=== PATIENT | male | born 1945 | race Caucasian/White ===

== ENCOUNTER 2021-07-22 12:10 | Outpatient (REF) | payer OTHER, SELFPAY ==
--- NOTE | ~2021-07-22 | XR_ITS ---
EXAMINATION: XR BILATERAL HIPS WITH AP PELVIS CLINICAL INFORMATION: Right hip pain. COMPARISON: None TECHNIQUE: Frontal and frog-leg lateral views of both hips were obtained. FINDINGS: Left hip: The bony alignments are intact. The cortices are intact. Mild diffuse osteopenia is noted. Enthesopathy is noted at the greater trochanter. There is oval shaped radiopaque density seen projecting within the proximal sacrum on the frontal projection, appears to be extraosseous on the oblique view, likely represent adjacent soft tissue calcification. No evidence of any significant osteoarthrosis of the fracture and/or dislocation. Incidental note is made of presence of calcific atherosclerotic disease of the femoral popliteal arteries. Right hip: Mild diffuse osteopenia. Near absent joint space, subchondral sclerosis and mild osteophyte formations are noted, consistent with severe osteoarthrosis. Superimposed wedge-shaped radiolucency is noted at the femoral head, likely represent subchondral large degenerative cyst versus avascular necrosis or combination thereof. Significant atherosclerotic disease is present involving the femoral popliteal arteries. XR/XR hips JONAH min 3V IMPRESSION: 1. Mild diffuse osteopenia. 2. The left hip shows no evidence of any significant osteoarthrosis and no fracture or dislocation. 3. The right hip is quite abnormal showing evidence of severe osteoarthrosis and wedge-shaped radiolucency at the femoral head likely represent subchondral degenerative cyst versus avascular necrosis or combination thereof. 4. Bilateral significant atherosclerotic disease of the femoral popliteal arteries.
== END 2021-07-22 12:11 | disposition home or self-care (01) ==
LOC: HO.HMGCX 12:10
PROVIDERS: PCP Internal Medicine; Visit Provider Internal Medicine
DX: M25.551 Pain in right hip (principal)
CPT/HCPCS: 73522

== ENCOUNTER 2023-03-28 11:17 | Outpatient (AMB) | payer MEDICARE, SELFPAY ==
--- NOTE | 2023-03-28 11:22 | MHC.PC.OV ---
Vital Signs 03/28/23 11:25 Height 5 ft 8 in Weight 190 lb BMI 28.9 BP 136/74 Blood Pressure Location Rt brachial Position Sitting Pulse 75 Pulse Source Pulse Oximeter Pulse Oximetry (%) 100 Oxygen Delivery Method Room Air Intake Visit Reasons: Infected Wound On Leg / Redness Intake Note: Pt is here today for a sick visit. Pt c/o L lower leg swelling and redness. Allergies penicillamine Allergy (Unknown, Verified 03/28/23 11:28) n/a Medication List - Last Reconciled 03/28/23 by Court Vidal MD amlodipine 2.5 mg PO DAILY atenolol 50 mg PO DAILY blood sugar diagnostic ([employer] Ultra Test strips) check glucose once a day flu vacc qs 2019- (6 mos up) mL IM lancets ([employer] UltraSoft Lancets) check glucose once a day quetiapine (Seroquel) 50 mg PO BEDTIME PRN sertraline 50 mg PO DAILY Tobacco use date assessed: 01/25/23 Dental Screening Dental Screen Date: 03/28/23 Did you have a dental visit in the last 12 months?: Yes Did you have a dental problem in the last 6 months where you did not have access to dental care?: No Was dental information given to patient?: Patient has dentist HPI Infected Wound On Leg / Redness HPI Details Pt presents for f/u of LLE chronic edema and venous insufficiency. Patient reports occasional flareup in a chronic swelling but denies recent ulcers. Patient declined referral to a vascular surgeon. He has not been wearing compression knee-high. HTN is stable on meds. Patient has not been taking antidepressant for chronic anxiety. [facility] Medical History COVID-19 Hip pain, right HTN (hypertension) Normal colonoscopy Weight loss Surgical History Hx of appendectomy Family History Mother No problems noted. Father No problems noted. 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 Azeem Johnson, Naomy Denny, Jf Chung and colleagues, with an educational bert from [employer]. Review of Systems Const All systems reviewed & are unremarkable except as noted in HPI and below Reports no additional complaints Eyes Reports no additional complaints ENT Reports no additional complaints Card Reports no additional complaints Resp Reports no additional complaints GI Reports no additional complaints Reports no additional complaints Physical exam (Primary Care) Vital Signs: Last Vital Signs Pulse 75 03/28/23 11:25 BP 136/74 03/28/23 11:25 Pulse Ox 100 03/28/23 11:25 Oxygen Delivery Method Room Air 03/28/23 11:25 BMI result Body Mass Index 28.9 Tobacco/Smoking Status: Tobacco use Status Tobacco use date assessed 01/25/23 03/28/23 11:31 Patient Tobacco Use Status Never used Tobacco 03/28/23 11:31 e-Cigarette/Vaping Use Never Used 03/28/23 11:31 Thrive Assessment: Date of Thrive Assessment Date Thrive assessed 11/18/21 03/28/23 11:31 Const General: no acute distress HENMT Throat: Yes posterior oropharynx normal Neck Neck: Yes supple Resp Effort & Inspection: normal respiratory effort Auscultation: clear to auscultation bilaterally Cardio Rhythm: regular rhythm Heart sounds: S1 normal heart sound present and S2 normal heart sound present Extrem Other: Left lower extremity 2+ nonpitting edema chronic venous stasis changes, no ulcers Assessment and Plan Assessment & Plan (1) Venous insufficiency of left leg: Code(s): I87.2 - Venous insufficiency (chronic) (peripheral) Plan: Patient was advised to wear compression knee highs and elevate lower extremity (2) HTN (hypertension): Code(s): I10 - Essential (primary) hypertension Plan: Continue current medications Medications: New compr.stocking,knee,long,large As directed 12 ea 0RF Refilled doxycycline hyclate 100 mg PO BID 20 tabs 0RF Discontinued sertraline Discontinued Reason: Doctor's Order 50 mg PO DAILY 30 tabs 2RF quetiapine (Seroquel) Discontinued Reason: Doctor's Order 50 mg PO BEDTIME PRN 30 tabs 0RF agitation Coding Level of Care Code Est Pt Level 3 (55793) Diagnoses Venous insufficiency of left leg I87.2 HTN (hypertension) I10
[2023-03-28 11:25] VITALS: BP 136/74; PULSE 75; O2SAT 100; BMI 28.9
== END 2023-03-28 12:24 | disposition home or self-care (01) ==
PROVIDERS: PCP Internal Medicine; Visit Provider Internal Medicine
DX: I87.2 Venous insufficiency (chronic) (peripheral) (principal); I10 Essential (primary) hypertension
CPT/HCPCS: 99213

== ENCOUNTER 2023-05-03 09:27 | Outpatient (AMB) | payer MEDICARE, SELFPAY ==
--- NOTE | 2023-05-03 09:37 | A.OFFPC_ITS ---
Vital Signs 05/03/23 09:39 Height 5 ft 8 in Weight 188 lb BMI 28.6 BP 120/78 Blood Pressure Location Lt brachial Position Sitting Pulse 74 Pulse Source Pulse Oximeter Pulse Oximetry (%) 99 Oxygen Delivery Method Room Air Intake Visit Reasons: 05/16/23 Cataract Surgery Left Eye Intake Note: Pt is here today for a pre op visit. Pt is having cataract surgery on 05/16/23. Allergies penicillamine Allergy (Unknown, Verified 05/03/23 09:41) n/a Tobacco use date assessed: 05/03/23 HPI 05/16/23 Cataract Surgery Left Eye HPI Details Pt presents for preop for cataract surgery. HTN is stable on meds. PFSH Medical History COVID-19 Hip pain, right HTN (hypertension) Normal colonoscopy Weight loss Surgical History Hx of appendectomy Family History Mother No problems noted. Father No problems noted. 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 Azeem Johnson, Naomy Denny, Jf Chung and colleagues, with an educational bert from [employer]. Review of Systems Const All systems reviewed & are unremarkable except as noted in HPI and below Reports no additional complaints Eyes Reports no additional complaints ENT Reports no additional complaints Card Reports no additional complaints Resp Reports no additional complaints GI Reports no additional complaints Reports no additional complaints Physical exam (Primary Care) Vital Signs: Last Vital Signs Pulse 74 05/03/23 09:39 BP 120/78 05/03/23 09:39 Pulse Ox 99 05/03/23 09:39 Oxygen Delivery Method Room Air 05/03/23 09:39 BMI result Body Mass Index 28.6 Tobacco/Smoking Status: Tobacco use Status Tobacco use date assessed 05/03/23 05/03/23 09:46 Patient Tobacco Use Status Never used Tobacco 05/03/23 09:37 e-Cigarette/Vaping Use Never Used 05/03/23 09:37 Thrive Assessment: Date of Thrive Assessment Date Thrive assessed 11/18/21 05/03/23 09:37 Const General: no acute distress HENMT Head: Yes normal to inspection Face and sinus: Yes normal facial exam Eyes General: appearance normal, both eyes and all related structures Neck Neck: Yes supple Resp Effort & Inspection: normal respiratory effort Auscultation: clear to auscultation bilaterally Cardio Rhythm: regular rhythm Heart sounds: S1 normal heart sound present and S2 normal heart sound present GI Inspection: Yes normal to inspection Palpation (GI): Soft to palpation Percussion: Yes normal to percussion Auscultation: normal bowel sounds Immunizations pneumoc 20-mary conj-dip cr(PF) Performing Provider: Court Vidal MD Administered by: GIAN Vitale on 05/03/23 10:25 Dose Route Admin Location Lot Number Expiration Date NDC [employer] 0.5 mL IM Left Deltoid [id number] 07/17/24 4918-8306-04 [employer] VIS Given Date VIS Provided VIS Publication Date 05/03/23 Single Vaccine 21 Eligibility Eligibility Date Funding Source Not [facility] Eligible 05/03/23 Private Assessment and Plan Assessment & Plan (1) HTN (hypertension): Code(s): I10 - Essential (primary) hypertension Plan: Continue current medications (2) Hyperlipidemia: Code(s): E78.5 - Hyperlipidemia, unspecified Plan: Continue low-cholesterol diet return for fasting blood work at [facility] (3) Cataract: Code(s): H26.9 - Unspecified cataract Plan: Patient is medically cleared for cataract surgery Orders: Orders Comprehensive [place]. Panel Fast Today E78.5 - Hyperlipidemia, unspecified, I10 - Essential (primary) hypertension Lipid Panel Today E78.5 - Hyperlipidemia, unspecified, I10 - Essential (primary) hypertension TSH reflex Free T4 Today E78.5 - Hyperlipidemia, unspecified, I10 - Essential (primary) hypertension Complete Blood Count Auto Diff Today E78.5 - Hyperlipidemia, unspecified, I10 - Essential (primary) hypertension Pneumococcal 20 Immunization Today Z23 - Encounter for immunization Coding Level of Care Code Est Pt Level 3 (22693) Diagnoses HTN (hypertension) I10 Hyperlipidemia E78.5 Cataract H26.9
[2023-05-03 09:39] VITALS: BP 120/78; PULSE 74; O2SAT 99; BMI 28.6
== END 2023-05-03 10:39 | disposition home or self-care (01) ==
PROVIDERS: PCP Internal Medicine; Visit Provider Internal Medicine
DX: I10 Essential (primary) hypertension (principal); E78.5 Hyperlipidemia, unspecified; H26.9 Unspecified cataract; Z23 Encounter for immunization
CPT/HCPCS: 90471; 90677; 99213

== ENCOUNTER 2023-06-05 13:00 | Outpatient (AMB) | payer MEDICARE, SELFPAY ==
--- NOTE | 2023-06-05 13:04 | MHC.PC.OV ---
Vital Signs 06/05/23 13:05 Height 5 ft 8 in Weight 180 lb BMI 27.4 BP 122/64 Blood Pressure Location Rt brachial Position Sitting Pulse 70 Pulse Source Pulse Oximeter Pulse Oximetry (%) 98 Oxygen Delivery Method Room Air Intake Visit Reasons: [facility], Sepsis in left leg Intake Note: Pt is here today for a Hospital follow up. Pt needs a refill on Haroperidol. Allergies penicillamine Allergy (Unknown, Verified 06/05/23 13:08) n/a Medication List - Last Reconciled 06/05/23 by Court Vidal MD amlodipine 2.5 mg PO DAILY atenolol 50 mg PO DAILY blood sugar diagnostic ([employer] Ultra Test strips) check glucose once a day compr.stocking,knee,long,large As directed doxycycline hyclate 100 mg PO BID flu vacc qs 2019-20 (6 mos up) mL IM haloperidol lactate 1 mg PO QID PRN lancets (OneTouch UltraSoft Lancets) check glucose once a day Tobacco use date assessed: 05/03/23 HPI [facility], Sepsis in left leg HPI Details Pt presents for f/u of hospitalization for cellulitis/pneumonia, sepsis change in MS. Pt is feeling better. Pt has been taking Haloperidol with good effect for psychosis/agitation. Patient's license was suspended because of report from psychiatrist at [facility] that the patient was not safe to drive a car due to his change in mental status and confusion. 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 Pt needs preop clearance for cataract surgery on June 26. [facility] Medical History COVID-19 Hip pain, right HTN (hypertension) Normal colonoscopy Weight loss Surgical History Hx of appendectomy Family History Mother No problems noted. Father No problems noted. 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 Azeem Johnson, Naomy Denny, Jf Chung and colleagues, with an educational bert from [employer]. Review of Systems Const All systems reviewed & are unremarkable except as noted in HPI and below Reports no additional complaints Eyes Reports no additional complaints ENT Reports no additional complaints Card Reports no additional complaints Resp Reports no additional complaints GI Reports no additional complaints Reports no additional complaints Physical exam (Primary Care) Vital Signs: Last Vital Signs Pulse 70 06/05/23 13:05 BP 122/64 06/05/23 13:05 Pulse Ox 98 06/05/23 13:05 Oxygen Delivery Method Room Air 06/05/23 13:05 BMI result Body Mass Index 27.4 Tobacco/Smoking Status: Tobacco use Status Tobacco use date assessed 05/03/23 06/05/23 13:12 Patient Tobacco Use Status Never used Tobacco 06/05/23 13:12 e-Cigarette/Vaping Use Never Used 06/05/23 13:12 Thrive Assessment: Date of Thrive Assessment Date Thrive assessed 11/18/21 06/05/23 13:12 Const General: no acute distress HENMT Mouth: Normal oral and palatal mucosa present Eyes General: appearance normal, both eyes and all related structures Neck Neck: Yes supple Resp Effort & Inspection: normal respiratory effort Auscultation: clear to auscultation bilaterally Cardio Rhythm: regular rhythm Heart sounds: S1 normal heart sound present and S2 normal heart sound present GI Inspection: Yes normal to inspection Palpation (GI): Soft to palpation Percussion: Yes normal to percussion Auscultation: normal bowel sounds Assessment and Plan Assessment & Plan (1) Psychosis: Code(s): F29 - Unspecified psychosis not due to a substance or known physiological condition Plan: Continue haloperidol and referred to outpatient psychiatrist to clear patient for 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 (2) Cataract: Code(s): H26.9 - Unspecified cataract Plan: Patient is medically cleared for cataract surgery (3) HTN (hypertension): Code(s): I10 - Essential (primary) hypertension Plan: Continue current medications Orders: Referrals Psychiatry Referral F29 - Unspecified psychosis not due to a substance or known physiological condition, F41.9 - Anxiety disorder, unspecified Medications: New haloperidol lactate 1 mg (0.5 mL) PO QID PRN 120 mL 1RF agitation Discontinued doxycycline hyclate Discontinued Reason: Doctor's Order 100 mg PO BID 20 tabs 0RF Coding Level of Care Code Est Pt Level 4 (60188) Diagnoses Psychosis F29 Cataract H26.9 HTN (hypertension) I10
[2023-06-05 13:05] VITALS: BP 122/64; PULSE 70; O2SAT 98; BMI 27.4
== END 2023-06-05 14:55 | disposition home or self-care (01) ==
PROVIDERS: PCP Internal Medicine; Visit Provider Internal Medicine
DX: F29 Unspecified psychosis not due to a substance or known physiological condition (principal); H26.9 Unspecified cataract; I10 Essential (primary) hypertension
CPT/HCPCS: 99214

== ENCOUNTER → 2023-10-09 23:59 | Outpatient (BNV) | payer MEDICARE, SELFPAY | PROVIDERS: PCP Internal Medicine; Visit Provider Internal Medicine | DX: I10 Essential (primary) hypertension (principal); I73.9 Peripheral vascular disease, unspecified; R53.83 Other fatigue | CPT/HCPCS: G0180 ==

== ENCOUNTER 2023-11-12 11:51 | Outpatient (AMB) | payer MEDICARE, SELFPAY ==
--- NOTE | 2023-11-12 11:52 | MHC.PC.OV ---
Intake Visit Reasons: Follow up [phone] Intake Note: Telehealth visit. Needs Hospital bed. Allergies penicillamine Allergy (Unknown, Verified 11/12/23 11:53) n/a Medication List - Last Reconciled 11/12/23 by Court Vidal MD atenolol 50 mg PO DAILY blood sugar diagnostic (OneTouch Ultra Test strips) check glucose once a day compr.stocking,knee,long,large As directed flu vacc qs 2019-20 (6 mos up) mL IM haloperidol lactate 1 mg (0.5 mL) PO QID PRN hospital bed As directed lancets (OneTouch UltraSoft Lancets) check glucose once a day Tobacco use date assessed: 11/12/23 Fall risk assessment: 2 + Falls in past year Last assessed Fall Risk: 11/12/23 Dental Screening Dental Screen Date: 11/12/23 Did you have a dental visit in the last 12 months?: No Did you have a dental problem in the last 6 months where you did not have access to dental care?: No Was dental information given to patient?: Patient declined HPI Follow up [phone] HPI Details This is a Telehealth vist. . Spoke with the patient's and son-in-law. Pt has been getting more forgetful, weaker, refusing to walk and having difficulty getting out of bed. He is at risk of falling out the bed. Patient has been evaluated by psychiatric team from [facility] but has been refusing to take psychiatric medications. Hypertension has been controlled on Atenolol. [facility] Medical History COVID-19 Hip pain, right HTN (hypertension) Normal colonoscopy Weight loss Surgical History Hx of appendectomy Family History Mother No problems noted. Father No problems noted. 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 1. Little interest or pleasure in doing things: not at all 2. Feeling down, depressed, or hopeless: not at all 3. Trouble falling or staying asleep, or sleeping too much: not at all 4. Feeling tired or having little energy: not at all 5. Poor appetite or overeating: more than half the days 6. Feeling bad about yourself - or that you are a failure or have let yourself or your family down: not at all 7. Trouble concentrating on things, such as reading the newspaper or watching television: not at all 8. Moving or speaking so slowly that other people could have noticed. Or the opposite - being so fidgety or restless that you have been moving around a lot more than usual: not at all 9. Thoughts that you would be better off or of hurting yourself in some way: not at all Total score: 2 Depression Screening Interpretation: Negative Depression Screening Done: Yes Source: Developed by Drs. Azeem Johnson, Naomy Denny, Jf Chung and colleagues, with an educational bert from [employer]. Thrive Questionnaire Date Thrive assessed: 11/12/23 I am a: Patient What is your living situation today?: I have a steady place to live Within the past 12 months, did the food you bought not last and you didn't have the money to get more?: Never true Within the past 12 months, did you worry whether your food would run out before you got money to buy more?: Never true Do you have trouble paying for medicines?: No Do you have trouble getting transportation to medical appointments?: No Do you have trouble paying your heating and electricity bill?: No Do you have trouble taking care of your child, family member or friend?: No Do you have trouble with day-to-day activities such as bathing, preparing meals, shopping, managing finances, etc.?: No Are you currently unemployed and looking for a job?: No Are you interested in more education?: No Please select the resources that you would like help with: None THRIVE Score: 0 AUDIT C Alcohol Use Questionnaire (AUDIT-C) 1. How often do you have a drink containing alcohol?: Never 3. How often do you have six or more drinks on one occasion?: Never Total Score: 0 EVA-7 AMB Questionnaire EVA-7 Date EVA - 7 assessed: 11/12/23 Feeling nervous, anxious, or on edge: 1 = Several days Not being able to stop or control worryin = Not at all Worrying too much about different things: 0 = Not at all Trouble relaxin = Not at all Being so restless that it is hard to sit still: 0 = Not at all Becoming easily annoyed or irritable: 1 = Several days Feeling afraid as if something awful might happen: 0 = Not at all Total EVA-7 score (0-4 normal; 5-9 mild; 10-14 moderate; 15-21 severe): 2 Source: Developed by Drs. Azeem Johnson, Naomy Denny, Jf Chung and colleagues, with an educational bert from [employer]. Review of Systems Const All systems reviewed & are unremarkable except as noted in HPI and below Reports no additional complaints Eyes Reports no additional complaints ENT Reports no additional complaints Card Reports no additional complaints Resp Reports no additional complaints GI Reports no additional complaints Reports no additional complaints Physical exam (Primary Care) Tobacco/Smoking Status: Tobacco use Status Tobacco use date assessed 11/12/23 11/12/23 11:56 Patient Tobacco Use Status Never used Tobacco 11/12/23 11:56 e-Cigarette/Vaping Use Never Used 11/12/23 11:56 PHQ-9: PHQ-9 Score PHQ-9: Total score 2 11/12/23 11:59 Depression Screening Interpretation: Negative Thrive Assessment: Date of Thrive Assessment Date Thrive assessed 11/12/23 11/12/23 11:59 Telehealth Telehealth Location of provider rendering services: practice address Location of patient: address on file Patient Identification confirmed using: Name, : Yes Telehealth method: video Patient verbally consented to treatment: Yes Patient verbally consented to billing insurance company: Yes Patient informed of any privacy concerns related to visit: Yes Minutes spent on Phone/Video with Pt.: 15 Assessment and Plan Assessment & Plan (1) Risk for falls: Code(s): Z91.81 - History of falling Plan: Patient completed a course of physical therapy at home. It is medically necessary for the patient to have hospital bed for progressive muscle weakness, deconditioning , worsening dementia and the risk of falling. (2) HTN (hypertension): Code(s): I10 - Essential (primary) hypertension Plan: Continue atenolol (3) Dementia: Code(s): F03.90 - Unspecified dementia, unspecified severity, without behavioral disturbance, psychotic disturbance, mood disturbance, and anxiety Plan: Follow-up with Psychiatry team at [facility]. Medications: Discontinued amlodipine Discontinued Reason: Doctor's Order 2.5 mg PO DAILY 30 tabs 0RF Coding Level of Care Code Tele Est Pt Level 3 (29116) Diagnoses Risk for falls Z91.81 HTN (hypertension) I10 Dementia F03.90
== END 2023-11-12 12:55 | disposition home or self-care (01) ==
PROVIDERS: PCP Internal Medicine; Visit Provider Internal Medicine
DX: I10 Essential (primary) hypertension (principal); Z91.81 History of falling; F03.90 Unspecified dementia, unspecified severity, without behavioral disturbance, psychotic disturbance, mood disturbance, and anxiety
CPT/HCPCS: 99213

== ENCOUNTER 2024-05-15 10:52 | Outpatient (AMB) | payer MEDICARE, SELFPAY ==
[2024-05-15 10:54] VITALS: BP 130/76; PULSE 56; O2SAT 100; BMI 22.8
--- NOTE | 2024-05-15 10:54 | A.OFFPC_ITS ---
Vital Signs 05/15/24 10:54 Height 5 ft 8 in Weight 150 lb BMI 22.8 BP 130/76 Blood Pressure Location Lt brachial Position Sitting Pulse 56 Pulse Source Pulse Oximeter Pulse Oximetry (%) 100 Oxygen Delivery Method Room Air Intake Visit Reasons: Evaluation Intake Note: Pt is here today for a follow up visit. Allergies penicillamine Allergy (Unknown, Verified 05/15/24 10:55) n/a Medication List - Last Reconciled 05/15/24 by Court Vidal MD atenolol 50 mg PO DAILY blood sugar diagnostic (OneTouch Ultra Test strips) check glucose once a day blood sugar diagnostic (FreeStyle Test strips) use once a day compr.stocking,knee,long,large As directed diabetic supplies, miscellan. Free style lite glucometer flu vacc qs 2019-20 (6 mos up) mL IM haloperidol lactate 1 mg (0.5 mL) PO QID PRN hospital bed As directed lancets (OneTouch UltraSoft 2 Lancet) test blood sugar once a day lancets (FreeStyle Lancets) test once a day Tobacco use date assessed: 05/15/24 Fall risk assessment: 1 Fall in past year Last assessed Fall Risk: 05/15/24 Dental Screening Dental Screen Date: 05/15/24 Did you have a dental visit in the last 12 months?: Yes Did you have a dental problem in the last 6 months where you did not have access to dental care?: No Was dental information given to patient?: Patient has dentist HPI Evaluation HPI Details Patient presents for the follow-up. Hypertension is controlled on atenolol. Patient's reports patient becoming more forgetful confused and having episodes of agitation and aggression. He has tried Haldol with only minimal effect. Patient denies change in appetite or sleep pattern but has lost significant amount of weight. [facility] Medical History (Updated 05/15/24 @ 11:40 by Court Vidal MD) COVID-19 Hip pain, right Weight loss Normal colonoscopy HTN (hypertension) Surgical History (Updated 05/15/24 @ 11:03 by GIAN Vitale) History of hip surgery Hx of appendectomy Family History Mother No problems noted. Father No problems noted. 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 How often do you have a drink containing alcohol?: Never 3. How often do you have six or more drinks on one occasion?: Never Total Score: 0 EVA-7 AMB Questionnaire EVA-7 Date EVA - 7 assessed: 11/12/23 Source: Developed by Drs. Azeem Johnson, Naomy Denny, Jf Chung and colleagues, with an educational bert from [employer]. Review of Systems Const All systems reviewed & are unremarkable except as noted in HPI and below Eyes Reports no additional complaints ENT Reports no additional complaints Card Reports no additional complaints Resp Reports no additional complaints GI Reports no additional complaints Reports no additional complaints Physical exam (Primary Care) Vital Signs: Last Vital Signs Pulse 56 05/15/24 10:54 BP 130/76 05/15/24 10:54 Pulse Ox 100 05/15/24 10:54 Oxygen Delivery Method Room Air 05/15/24 10:54 BMI result Body Mass Index 22.8 Tobacco/Smoking Status: Tobacco use Status Tobacco use date assessed 05/15/24 05/15/24 10:55 Patient Tobacco Use Status Never used Tobacco 05/15/24 10:55 e-Cigarette/Vaping Use Never Used 05/15/24 10:54 Thrive Assessment: Date of Thrive Assessment Date Thrive assessed 11/12/23 05/15/24 10:54 Const General: no acute distress HENMT Head: Yes normal to inspection Face and sinus: Yes normal facial exam Throat: Yes posterior oropharynx normal Resp Effort & Inspection: normal respiratory effort Auscultation: clear to auscultation bilaterally Cardio Rhythm: regular rhythm Heart sounds: S1 normal heart sound present and S2 normal heart sound present GI Inspection: Yes normal to inspection Palpation (GI): Soft to palpation Auscultation: normal bowel sounds Assessment and Plan Assessment & Plan (1) HTN (hypertension): Code(s): I10 - Essential (primary) hypertension Plan: Continue atenolol, return for fasting blood work (2) Dementia: Comment: With agitation, started on Rexulti 0.5 mg increase by 0.5 mg q 7 days 05/15/2024 Code(s): F03.90 - Unspecified dementia, unspecified severity, without behavioral disturbance, psychotic disturbance, mood disturbance, and anxiety Plan: Try Rexulti (3) Hyperglycemia: Code(s): R73.9 - Hyperglycemia, unspecified Plan: ADA diet discussed, check A1c Orders: Orders Complete Blood Count Auto Diff Today F03.90 - Unspecified dementia, unspecified severity, without behavioral disturbance, psychotic disturbance, mood disturbance, and anxiety, I10 - Essential (primary) hypertension Comprehensive Hall. Panel Fast Today F03.90 - Unspecified dementia, unspecified severity, without behavioral disturbance, psychotic disturbance, mood disturbance, and anxiety, I10 - Essential (primary) hypertension Lipid Panel Today F03.90 - Unspecified dementia, unspecified severity, without behavioral disturbance, psychotic disturbance, mood disturbance, and anxiety, I10 - Essential (primary) hypertension TSH reflex Free T4 Today F03.90 - Unspecified dementia, unspecified severity, without behavioral disturbance, psychotic disturbance, mood disturbance, and anxiety, I10 - Essential (primary) hypertension Hemoglobin A1c Today F03.90 - Unspecified dementia, unspecified severity, without behavioral disturbance, psychotic disturbance, mood disturbance, and anxiety, R73.9 - Hyperglycemia, unspecified Medications: New Rexulti (brexpiprazole) One tablet p.o. q.d. for 7 days then 2 tablets p.o. q.d. for 7 days, then 3 tablets p.o. q.d. for 7 days then 4 tablets p.o. q.d. for 7 days orally daily; 72 tabs 0RF NS Refilled atenolol 50 mg PO DAILY 90 tabs 3RF Discontinued haloperidol lactate Discontinued Reason: Doctor's Order 1 mg (0.5 mL) PO QID PRN 120 mL 1RF agitation Coding Level of Care Code Est Pt Level 3 (47262) Diagnoses HTN (hypertension) I10 Dementia F03.90 Hyperglycemia R73.9
== END 2024-05-15 11:41 | disposition home or self-care (01) ==
PROVIDERS: PCP Internal Medicine; Visit Provider Internal Medicine
DX: I10 Essential (primary) hypertension (principal); F03.90 Unspecified dementia, unspecified severity, without behavioral disturbance, psychotic disturbance, mood disturbance, and anxiety; R73.9 Hyperglycemia, unspecified
CPT/HCPCS: 99213

== ENCOUNTER 2024-05-16 07:25 | Outpatient (REF) | payer MEDICARE, SELFPAY ==
[2024-05-16 09:59] LABS: MANUAL DIFF FLAG NO
[2024-05-16 10:10] LABS: Basophils Percent Auto 0.4 % (0-2); Eosinophils Absolute Auto 0.1 X10*3/uL (0.0-0.4); Eosinophils Percent Auto 1.3 % (0-4); Hematocrit 37.2 % (42.0-52.0); Hemoglobin 12.3 g/dl (14.0-18.0); Imm Gran Abs Auto 0.04 X10*3/uL (0.00-0.03); Imm Gran Pct Auto 0.7 % (0.0-0.4); Lymphocytes Absolute Auto 1.8 X10*3/uL (1.2-4.9); Lymphocytes Percent Auto 33.8 % (20-40); Mean Corpuscular HGB Conc 33.1 g/dl (31.0-36.0); Mean Corpuscular Hemoglobin 30.4 pg (27.0-33.0); Mean Corpuscular Volume 92.1 fL (80.0-98.0); Mean Platelet Volume 9.1 fL (9.4-12.4); Monocytes Absolute Auto 0.4 X10*3/uL (0.1-1.2); Monocytes Percent Auto 7.2 % (2-11); Neutrophils Absolute Auto 3.1 x10*3/uL (2.0-8.3); Neutrophils Percent Auto 56.6 % (45-73); Platelet Count 231 X10*3/uL (160-400); Red Blood Count 4.04 X10*6/uL (4.60-5.80); Red Cell Distribution Width 13.2 % (11.0-16.0); White Blood Count 5.4 X10*3/uL (4.8-10.8)
[2024-05-16 10:37] LABS: Alanine Aminotransferase 17 U/L (0-40); Albumin Level 3.8 g/dL (3.5-5.0); Alkaline Phosphatase 124 U/L (39-117); Anion Gap 10 (12-20); Aspartate Amino Transferase 21 U/L (5-37); Bilirubin Total 0.5 mg/dL (0.0-1.0); Blood Urea Nitrogen 18 mg/dL (9-16); Calcium 10.1 mg/dL (8.4-10.2); Carbon Dioxide 27 mmol/L (22-29); Chloride 107 mmol/L (96-108); Cholesterol 145 mg/dL (<200); Estimated Glomerular Filt Rate > 60; Glucose Fasting 100 mg/dL (60-99); HDL Cholesterol 40 mg/dL (>40); LDL Cholesterol Calculated 92 mg/dL (<100); Potassium 4.4 mmol/L (3.3-5.1); Sodium 140 mmol/L (135-145); Triglycerides 67 mg/dL (<150)
[2024-05-16 10:52] LABS: TSH reflex Free T4 1.38 uIU/mL (0.32-4.0)
[2024-05-16 12:30] LABS: Estimated Average Glucose 103 mg/dL; Hemoglobin A1c % 5.2 % (<6.0)
== END 2024-05-16 07:26 | disposition home or self-care (01) ==
LOC: HO.HMGCLDS 07:25
PROVIDERS: PCP Internal Medicine; Visit Provider Internal Medicine
DX: I10 Essential (primary) hypertension (principal); F03.90 Unspecified dementia, unspecified severity, without behavioral disturbance, psychotic disturbance, mood disturbance, and anxiety; R73.9 Hyperglycemia, unspecified
CPT/HCPCS: 36415; 80053; 80061; 83036; 84443; 85025

== ENCOUNTER 2024-08-18 07:03 | Outpatient (REF) | payer MEDICARE, SELFPAY ==
[2024-08-18 10:59] LABS: Alanine Aminotransferase 24 U/L (0-40); Alkaline Phosphatase 136 U/L (39-117); Anion Gap 11 (12-20); Aspartate Amino Transferase 25 U/L (5-37); Bilirubin Total 0.7 mg/dL (0.0-1.0); Blood Urea Nitrogen 13 mg/dL (9-16); Calcium 10.5 mg/dL (8.4-10.2); Carbon Dioxide 30 mmol/L (22-29); Chloride 105 mmol/L (96-108); Estimated Glomerular Filt Rate 60; Glucose Random 97 mg/dL (60-115); Potassium 4.8 mmol/L (3.3-5.1); Sodium 141 mmol/L (135-145); Total Protein 8.4 g/dL (6.5-8.0)
[2024-08-18 11:16] LABS: TSH reflex Free T4 1.56 uIU/mL (0.32-4.0)
[2024-08-18 11:23] LABS: Folate 16.1 ng/mL (> or = 4.0); Vitamin B12 731 pg/mL (200-900)
== END 2024-08-18 07:04 | disposition home or self-care (01) ==
LOC: HO.HMGCLDS 07:03
PROVIDERS: PCP Internal Medicine; Visit Provider Internal Medicine
DX: R45.1 Restlessness and agitation (principal)
CPT/HCPCS: 36415; 80053; 82607; 82746; 84443

== ENCOUNTER 2024-11-20 07:37 | Outpatient (REF) | payer MEDICARE, SELFPAY ==
--- OUTSIDE RECORDS SUMMARY | 2024-11-20 07:41 | XMS_ITS | Patient Health Record ---
Author Organization [facility] Address [address] [facility] [address] Care Team Providers Care Meat Washer Name Role Phone LYLE VERONICA Primary Care Provider ALLERGIES Allergen (clinical drug ingredient) Drug/Non Drug Allergy documented on EMR Reaction Allergy Type Onset Date Status penicillin (uncoded) Unknown Allergy Active REASON FOR REFERRAL No Information MEDICATIONS Medication SIG (Take, Route, Fr equency, Duration) Notes Start Date End Date Status Atenolol 50 MG 1 tablet Orally Once a day for 90 days Active SOCIAL HISTORY Tobacco Use: Social History Observation Description Date Details (start date - stop date) Never Smoker NA - NA Sex Assigned At : Social History Observation Description Sex Assigned At Unknown Tobacco Use/Smoking Question Answer Notes Are you a nonsmoker PROBLEMS Problem Type ICD Code Onset Dates Problem Status W/U Status Risk SNOMED Code Notes Problem Hyperlipidemia, unspecified (E78.5) Active confirmed Hyperlipidemia (71909997) Problem Acute stress reaction (F43.0) Active confirmed Acute stres s reaction (27724028) Problem Essential (primary) hypertension (I10) Active confirmed Essential hypertension (85071333) PLAN OF TREATMENT Pending Test Test Name Order Date Lipid Panel 04/14/2019 Comp. Metabolic Panel (14) 04/14/2019 CBC 04/14/2019 EKG 01/22/2018 CBC (COMPLETE BLOOD COUNT) 01/22/2018 CBC (COMPLETE BLOOD COUNT) 04/16/2018 CBC (COMPLETE BLOOD COUNT) 04/19/2020 COMPREHENSIVE METABOLIC PANEL 04/19/2020 COMPREHENSIVE METABOLIC PANEL 01/22/2018 COMPREHENSIVE METABOLIC PANEL 04/16/2018 CRP, HIGH SENSITIVITY 04/16/2018 HEMOGLOBIN A1C 04/16/2018 INSULIN 04/16/2018 LIPID PANEL 04/16/2018 LIPID PANEL 01/22/2018 LIPID PANEL 04/19/2020 URINALYSIS, COMPLETE 04/19/2020 URINALYSIS, COMPLETE 01/22/2018 URINALYSIS, COMPLETE 04/16/2018 Insurance Providers Payer Name Payer Address Payer Phone Subscriber Number Group Number Insured Name Patient Relationship to Insured Coverage Start Date Coverage End Date Errolgabrielle JEN [address] [place], [place] [address] [id number] Elfego Bean Self - patient is the insured 8 MEDICAL (GENERAL) HISTORY Medical History History ICD Code hypertension depression Surgical History Surgery Date(Month/Year) appendectomy colonoscopy 2018
--- OUTSIDE RECORDS SUMMARY | 2024-11-20 07:41 | XMS_ITS | Data Portability ---
Author Organization [place] - [facility] Address [address] [place] [address] Care Team Providers Care Escalator Attendant Name Role Phone VAN WAHLANNA Primary Care Provider Assessment Encounter Date Assessment Date Assessment LastModified by Organization Details LastModified Time 10/02/2021 10/02/2021 Overview/History : Pt with intermittent confusion and generalized weakness per family. Ongoing x5-8 days. Positive for COVID on 09/21 via home test. Pt denies any recent pain, SOB, or cough. Family states he has also had increased urination for the past couple days. Exam: new pt to and to this provider The patient is a nontoxic afebrile 76-year-old male in no acute distress at this time. Respirations unlabored lungs clear CV: RRR. No pharyngeal erythema no cervical lymphadenopathy soft flat nontender abdomen without rigidity or guarding. Bowel sounds present in all 4 quadrants no suprapubic or CVA tenderness. The patient has some difficulty with short-term memory during my assessment patient is stoic and keeps repeating that he does not like to be taken care of and during 1 or 2 of his records about not liking to be taken care of he forgot what he was saying and got frustrated that he could not remember. Patient was fully aware of the family members around him and that he was in his home and what month that was but could not remember what year. He was also able to tell me who the president was. Patient denies having been sick recently. DDx considered, but not limited to: UTI Sepsis Delirium Dementia dehydration Work up/Results: HPI and PE suggests delirium vs dementia as family states he has eased into this that this was more of a sudden change. Patient's urinalysis does not suggest any infection at this time it does however suggest dehydration with an elevated specific gravity and the fact that the patient's urine was very dark Swapnil colored. Patient's lactate level is unremarkable and is Moraima 8 profile is essentially within normal limits without anything suggesting any significant metabolic processes. Plan/Discussion: Patient was given 1 L normal saline and the patient's thought processes became definitively more clear with the more fluids that he got. Patient was able to get up and ambulate on his own to the bathroom and was able to put on his housecoat without any assistance where as per prior 2 hour arrival his son states that it took them almost 15 minutes to get a simple T shirt on him. We will have the patient scheduled for today follow up for reevaluation and possibly a second L of IV normal saline at that time. Family and patient are both in agreement with this recommendation as the patient adamantly refuses to go to not only the emergency room but through his primary care provider Time On Scene with Patient: 01:43:40 [email or web address] Not available 10/02/2021 21:04:57 10/04/2021 10/04/2021 Overview/History : Pt with cough and recently Dx with COVID-19 and was seen 2 days ago for dyhydration. Exam: established pt [facility] and with this provider. Nontoxic afebrile 76yom in NAD. Pt iw A&Ox4 recent and remote much better today. Resp unlabored, Lungs: fine crackles in the bases bilaterally. CV:RRR. CN II-XII intact. Ambulates without assistance. DDx considered, but not limited to: Post acute COVID-19 Viral pneumonia/pneumoni tis Bacterial PNA dehydration Work up/Results: HPI and PE most suggestive of post-acute COVID-19 and pneumonitis vs bacterial pneumonia. Based on his current exam I believe that the patient has a pneumonitis from his recent Viral illness. Pt has also had some dehydration recently but looks much better from a hydration status today. Plan/Discussion: Portable CXR if there are any focal infiltrates concerning for bacterial PNA. Pts physcial exam at this time mostly suggests a viral pneumonia vs pneumonitis likely not requiring antibiotics so long as he starts improving soon. F/u for worsening symptoms Increase activity level Deep breathing exercises. In order to obtain further information and compare any laboratory results/values, I have accessed old patient records. This information was pertinent in my medical decision making today. Time On Scene with Patient: 00:51:27 [email or web address] Not available 10/04/2021 16:25:33 10/08/2021 10/08/2021 Overview/History : Patient is a 76 year old M, established with , new to provider, with a history of bph who presents for recheck for pneumonia. Patient was last seen by on 10/04/21 (4 days ago). Patient started azithromycin this morning. Denies SOB, wheezing, fever, worsening cough. Family is present for visit and reports patient is eating and drinking, decreased intake from baseline but eating and drinking well, tolerating PO intake. Exam: Patient is found at the kitchen table, vitals Normal, pt appears well, elderly but healthy, non-toxic, NAD, A&OX3, with normal ambulation, lungs clear to auscultation bilaterally, abd soft, non-tender, non-distended without guarding or rebound. Patient AOx3, very assertive and denies COVID19 infection (family reports patient tested positive on home test in early September). Patient feels he is not ill because he can exercise and has no trouble breathing. Discussed imaging results, reassuring exam etc. DDx considered, but not limited to: post acute COVID19 syndrome Plan: MDM/Discussion: You have been seen today for a follow up visit. You are doing very well. CONTINUE drinking plenty of water, getting rest, and exercising. CONTINUE monitoring for any new or worsening symptoms. FINISH azithromycin as discussed. Low suspicion for emergent condition requiring further intervention at this time; however, ER precautions have been given. Advised to follow up with his PCP. The patient and family verbalizes agreement and understanding of treatment plan. In order to obtain further information and compare any laboratory results/values, I have accessed old patient records. This information was pertinent in my medical decision making today. The patient was last seen on 10-04-2021 for dehydration. This information was pertinent in my medical decision making today. Proper Personal Protective Equipment (PPE), including gloves, eye protection, N95 mask were donned and doffed appropriately and all equipment cleaned using approved technique with germicidal disposable wipes prior to and after care of this patient according to [facility]'s infection prevention protocols. [email or web address] Not available 10/08/2021 16:43:31 Plan of Treatment Reminders Order Date Submit Date Provider Last Modified By Organization Details Last Modified Time Details Appointments None recorded. Lab BMP + ionized calcium, serum or plasma 2021 [email or web address], [address], [place], [address], 05:02:01 urinalysis, dipstick 2021 [email or web address] [facility], [address], [place], [address], 21:06:20 [facility] [address], [place], [address], 05:02:05 Referral None recorded. Procedures None recorded. Surgeries None recorded. Imaging XR, chest, 2 view 2021 [email or web address] [facility] ([facility] [employer]), [address], [place], [address], 20:39:42 Medication Orders sodium chloride 0.9 % intravenous solution 2021 [email or web address] Not available 10:14:46 Patient TargetsNo targets recorded. Patient Instructions Encounter Date Encounter Id Patient Instructions Last Modified By Organization Details Last Modified Time 10/02/2021 [id number] learning about delirium [email or web address] Not available 10/02/2021 21:06:18 dehydration: car e instructions [email or web address] Not available 10/02/2021 21:06:16 oral rehydration : care instructions [email or web address] Not available 10/02/2021 21:06:21 Oral Rehydration : Care Instructions Your Care Instructions Dehydration occurs when your body loses too much water. This can happen if you do not drink enough fluids or lose a lot of fluid due to diarrhea, vomiting, or sweating. Being dehydrated can cause health problems and can even be life-threatening. To replace lost fluids, you need to drink liquid that contains special chemicals called electrolytes. Electrolytes keep your body working well. Plain water does not have electrolytes. You also need to rest to prevent more fluid loss. Replacing water and electrolytes (oral rehydration) completely takes about 36 hours. But you should feel better within a few hours. Follow-up care is a jacobs part of your treatment and safety. Be sure to make and go to all appointments, and call your doctor if you are having problems. It's also a good idea to know your test results and keep a list of the medicines you take. How can you care for yourself at home? Take frequent sips of a drink such as Gatorade, Powerade, or other rehydration drinks that your doctor suggests. These replace both fluid and important chemicals (electrolytes) you need for balance in your blood. Drink 2 quarts of cool liquid over 2 to 4 hours. You should have at least 10 glasses of liquid a day to replace lost fluid. If you have kidney, heart, or liver disease and have to limit fluids, talk with your doctor before you increase the amount of fluids you drink. Make your own drink. Measure everything carefully. The drink may not work well or may even be harmful if the amounts are off. 1 quart water ?? teaspoon salt 6 teaspoons sugar Do not drink liquid with caffeine, such as coffee and ralph. Do not drink any alcohol. It can make you dehydrated. Drink plenty of fluids, enough so that your urine is light yellow or clear like water. If you have kidney, heart, or liver disease and have to limit fluids, talk with your doctor before you increase the amount of fluids you drink. When should you call for help? Call anytime you think you may need emergency care. For example, call if: You have signs of severe dehydration, such as: You are confused or unable to stay awake. You passed out (lost consciousness). Call your doctor now or seek immediate medical care if: You still have signs of dehydration. You have sunken eyes and a dry mouth, and you pass only a little dark urine. You are dizzy or lightheaded, or you feel like you may faint. You are not able to keep down fluids. Watch closely for changes in your health, and be sure to contact your doctor if: You do not get better as expected. Care instructions adapted under license by [facility]. This care instruction is for use with your licensed healthcare professional. If you have questions about a medical condition or this instruction, always ask your healthcare professional. [employer] disclaims any warranty or liability for your use of this information. Learning About Delirium What is delirium? Delirium is a sudden change in mental condition. It leads to confusion and unusual behavior. Delirium is also called acute confusional state. Delirium affects all age groups. It can result from problems that affect the brain, such as stroke. It can also happen after an infection or when using certain medicines. Pain may also cause the problem. Seeing delirium in a loved one can be scary and sad. But it will go away most of the time. It usually lasts hours to days. The doctor will look for a cause and take steps to treat it and keep your loved one comfortable. What are the symptoms? Symptoms of delirium usually develop over several hours to a few days. Symptoms may change and be more or less severe. Symptoms include: A short attention span. Confusion. This is not knowing where you are, what time it is, or who others are. Hallucinations. This usually is seeing or hearing things that are not really there. Delusions. This is believing things that aren't true. Illusions. This is making a mistake in what you think is real. For example, you think a child is crying, but it's a pillow. Disorganized thinking. How is delirium treated? The doctor may: Find and treat the cause. This could be: Not getting enough fluids. An infection. A medicine or combination of medicines. Another medical problem. Prescribe a medicine. Make the hospital room as quiet as possible. You may be able to help your loved one by being present and talking to and touching him or her. Follow-up care is a jacobs part of your treatment and safety. Be sure to make and go to all appointments, and call your doctor if you are having problems. It's also a good idea to know your test results and keep a list of the medicines you take. Care instructions adapted under license by [facility]. This care instruction is for use with your licensed healthcare professional. If you have questions about a medical condition or this instruction, always ask your healthcare professional. [employer] disclaims any warranty or liability for your use of this information. [email or web address] Not available 10/02/2021 21:06:13 10/04/2021 [id number] Start getting up and moving around more. Take roughly 10 deep breaths every couple hours while awake. If symptoms worsen follow up sooner. Someone will come get a chest x-ray in a couple days to make sure your don't have a pneumonia tht needs antibiotics. Thank you for your visit with [facility] today. We cannot always find the exact cause of your symptoms during your initial visit. Please follow up with your primary care provider or specialist as needed to be rechecked or seek medical attention if your symptoms do not go away or get worse. If you develop any new or worsening symptoms and need after hours care, please go to nearest ER and/or call 911. If you have additional concerns or develop a change in your condition between 8am-10pm, please call [facility] at [phone] to help navigate your care. [email or web address] Not available 10/04/2021 16:24:45 Reason for Referral None Reported. Results Created Date Observation Date Name Description Value Unit Range Abnormal Flag Note LastModifiedBy Organization Detail LastModifiedTime 10/02/19 22 10/02/2021 urina lysis , dipst ick Appearance clear Not Available [facility] [address] [place], [address], 10/02/2021 17:20:05 10/02/19 22 10/02/2021 urina lysis , dipst ick Color [email or web address] Not Available [facility] [address] [place], [address], 10/02/2021 17:20:05 10/02/19 22 10/02/2021 urina lysis , dipst ick Glucose (ref: neg) Neg Not Available [facility] [address] [place], [address], 10/02/2021 17:20:05 10/02/19 22 10/02/2021 urina lysis , dipst ick Bilirubin (ref: neg) Neg Not Available [facility] [address] [place], [address], 10/02/2021 17:20:05 10/02/19 22 10/02/2021 urina lysis , dipst ick Ketones (ref: neg) Neg Not Available [facility] [address] [place], [address], 10/02/2021 17:20:05 10/02/19 22 10/02/2021 urina lysis , dipst ick Specific [place] (ref: 1.003 - 1.035) 1.025 Not Available [facility] [address] [place], [address], 10/02/2021 17:20:05 10/02/19 22 10/02/2021 urina lysis , dipst ick Blood (ref: neg) Neg Not Available [facility] [address] [place], [address], 10/02/2021 17:20:05 10/02/19 22 10/02/2021 urina lysis , dipst ick pH (ref: 5-7) 6.5 Not Available [facility] [address] [place], [address], 10/02/2021 17:20:05 10/02/19 22 10/02/2021 urina lysis , dipst ick Protein (ref: neg) ?? Not Available [facility] [address] [place], [address], 10/02/2021 17:20:05 10/02/19 22 10/02/2021 urina lysis , dipst ick Urobili 0 Not Available [facility] [address] [place], [address], 10/02/2021 17:20:05 10/02/19 22 10/02/2021 urina lysis , dipst ick Nitrites (ref: neg) negati ve Not Available [facility] [address] [place], [address], 10/02/2021 17:20:05 10/02/19 22 10/02/2021 urina lysis , dipst ick Leukocytes (ref: neg) Neg Not Available [facility] [address] [place], [address], 10/02/2021 17:20:05 10/02/19 22 10/02/2021 BMP + IONIZ ED CALCI UM, SERUM OR PLASM A glu 109 mg/dL 70-105 Not Available [address], [address], 10/02/2021 17:49:25 10/02/19 22 10/02/2021 BMP + IONIZ ED CALCI UM, SERUM OR PLASM A BUN 17 mg/dL 8-26 Not Available [address], [address], 10/02/2021 17:49:25 10/02/19 22 10/02/2021 BMP + IONIZ ED CALCI UM, SERUM OR PLASM A crea 0.9 mg/dL 0.6-1. 3 Not Available [address], [address], 10/02/2021 17:49:25 10/02/19 22 10/02/2021 BMP + IONIZ ED CALCI UM, SERUM OR PLASM A Na 138 mmol/ L 138-14 6 Not Available [address], [address], 10/02/2021 17:49:25 10/02/19 22 10/02/2021 BMP + IONIZ ED CALCI UM, SERUM OR PLASM A K 3.7 mmol/ L 3.5-4. 9 Not Available [address], [address], 10/02/2021 17:49:25 10/02/19 22 10/02/2021 BMP + IONIZ ED CALCI UM, SERUM OR PLASM A cL 100 mmol/ L 98-109 Not Available [address], [address], 10/02/2021 17:49:25 10/02/19 22 10/02/2021 BMP + IONIZ ED CALCI UM, SERUM OR PLASM A TCO2 22 mmol/ L 24-29 Not Available [address], [address], 10/02/2021 17:49:25 10/02/19 22 10/02/2021 BMP + IONIZ ED CALCI UM, SERUM OR PLASM A angap 20 mmol/ L 10-20 Not Available [address], [address], 10/02/2021 17:49:25 10/02/19 22 10/02/2021 BMP + IONIZ ED CALCI UM, SERUM OR PLASM A ica 1.18 mmol/ L 1.12-1 .32 Not Available [address], [address], 10/02/2021 17:49:25 10/02/19 22 10/02/2021 BMP + IONIZ ED CALCI UM, SERUM OR PLASM A HCT 51 %pcv 38-51 Not Available [address], [address], 10/02/2021 17:49:25 10/02/19 22 10/02/2021 BMP + IONIZ ED CALCI UM, SERUM OR PLASM A Hb 17.3 g/dL 12-17 Not Available [address], [address], 10/02/2021 17:49:25 10/02/19 22 10/02/2021 CG4+ ISTAT lac 0.81 mmol/ L 0.9-1. 7 Not Available [address], [address], 10/02/2021 17:38:44 10/07/19 XR, chest , 2 view No observ ation record ed. [email or web address] [facility] ([facility] [employer]) [address] [place], [address], 10/07/2021 23:19:00 Result Notes None recorded. Procedures Surgical History Date Name Laterality Status Provider Name and Address Organization Details Recorded Time 10/02/19 22 IV Start Procedure - DH completed Dustin Lemus NP [address], [place], [address], [place] [facility] 10/02/2021 20:50:06 Appendectomy completed Dustin Lemus NP [address], [place], [address], [place] [facility] 10/02/2021 17:06:38 Imaging Results Imaging Date Name Status LastModified by Organiz ation Details LastModified Time 10/07/2021 XR, chest, 2 view completed [email or web address] [facility] ([facility] [employer]) [address] [place], [address], 10/07/2021 23:19:00 Procedure Notes None recorded. Medical Equipment None Reported. Allergies Allergen ID Allergen Name Allergen Category Reaction Reaction Severity Criticality Documentation Date Start Date Code Code System Note Provider Name and Address Organization Details Recorded Time 940231 Product containin g penicilli n (product) medicatio n Not available Not available Not available 10/02/2021 50355 8001 SNOMED Dustin Lemus NP [address], [place], [address], [place] [facility] 17:05:26 Medications Name Sig Start Date Stop Date Status Note LastModified by Organization Details LastModified Time azithromycin 250 mg tablet TAKE 2 TABLETS (500 MG) BY ORAL ROUTE ONCE DAILY FOR 1 DAY THEN 1 TABLET (250 MG) BY ORAL ROUTE ONCE DAILY FOR 4 DAYS active Not Available Not Available No t Available benzonatate 200 mg capsule Take 1 capsule 3 times a day by oral route. active Not Available Not Available No t Available OneTouch Ultra Test strips USE TO TEST BLOOD GLUCOSE ONCE DAILY active Not Available Not Available N ot Available sodium chloride 0.9 % intravenous solution 1 L administere d on scene. Time administere d: 1730 2021 active Not Available Not Available Not Avai lable atenolol 50 mg tablet TAKE ONE TABLET BY MOUTH EVERY DAY active Not Available Not Available No t Available OneTouch UltraSoft Lancets USE TO TEST BLOOD GLUCOSE ONCE DAILY active Not Available Not Available N ot Available Vitals Date Recorded Body temperature Oxygen saturation Oxygen saturation in Arterial blood by Pulse oximetry Respiratory rate Heart rate Systolic blood pressure Diastolic blood pressure Provider Name and Address Organization Details Last Updated DateTime 2 99.5 [degF] 95 % 95 % 18 /min 75 /min 118 mm[Hg] 52 mm[Hg] Not Available [facility] 2 17:37:26 Date Recorded Body temperature Respiratory rate Oxygen saturation Oxygen saturation in Arterial blood by Pulse oximetry Heart rate Systolic blood pressure Diastolic blood pressure Provider Name and Address Organization Details Last Updated DateTime 2 100.1 [degF] 18 /min 94 % 94 % 88 /min 138 mm[Hg] 70 mm[Hg] Not Available [facility] 2 15:44:11 Date Recorded Heart rate Body temperature Oxygen saturation Oxygen saturation in Arterial blood by Pulse oximetry Respiratory rate Systolic blood pressure Diastolic blood pressure Provider Name and Address Organization Details Last Updated DateTime 2 89 /min 97 [degF] 96 % 96 % 20 /min 122 mm[Hg] 76 mm[Hg] Not Available [facility] 2 14:26:52 Social History Question Answer Notes LastModified by Organizat ion Details LastModified Time Tobacco Smoking Status Never Smoker Dustin Lemus, NATALY [address] [place], [address], [place] [facility] 10/02/2021 17:07:15 Do You Have An Advance Directive? No [email or web address] Information not available 10/02/2021 What Is Your Level Of Alcohol Consumption? None [email or web address] Information not available 10/02/2021 What Is Your Code Status? Full Code [email or web address] Information not available 10/02/2021 Within The Past 12 Months, Have You Worried That Your Food Would Run Out Before You Got Money To Buy More. No [email or web address] Information not available 10/02/2021 Excessive Alcohol Or Drug Use No [email or web address] Information not available 10/02/2021 Does This Patient Have A PCP? Yes [email or web address] Information not available 10/02/2021 Do You Use Any Illicit Or Recreational Drugs? No [email or web address] Information not available 10/02/2021 Do You Or Have You Ever Used Any Other Forms Of Tobacco Or Nicotine? No [email or web address] Information not available 10/02/2021 Sex: Unknown Functional Status None recorded. Mental Status None recorded. Family History Nothing Reported. Medical History Condition Response Diabetes N Coronary Artery Disease N CHF N Parkinson's Disease N Cancer N Dementia N Stroke N Depression N Asthma N COPD N Hypothyroidism N High Cholesterol N Rheumatoid Arthritis N Pulmonary Embolism N Hypertension N A-fib N Osteoporosis N Kidney Disease N Past Encounters Encounter ID Performer Location Encounter Start Date Encounter Closed Date Diagnosis/Indication Diagnosis SNOMED-CT Code Diagnosis ICD10 Code Diagnosis Note [id number] Dustin Lemus NP [facility] [address] [place] [address] 10/02/2021 17:01:01 10/05/2021 10:44:11 Dehydration 52680910 E86.0 [facility] [place] [id number] F09 Post-acute COVID-19 1119 673193 U07.1 [id number] Dustin Lemus NP [facility] [address] [place] [address] 10/04/2021 15:35:49 10/05/2021 10:44:18 Post-acute COVID-19 8857102788 U07.1 Pneumonia caused by SARS-CoV-2 [id number] J12.82 [id number] LAKISHA ALMANZAR NP [facility] [address] [place] [address] 10/08/2021 13:49:12 10/11/2021 08:20:44 Pneumonia caused by SARS-CoV-2 [id number] J12.82 Health Concerns Section Related Observation LastModified by Organization Detai ls LastModified Time None Recorded Concern Status LastModified by Organization Details LastModified Time None Recorded Advance Directives Directive N: Payers Encounter Date Sequence Insurance Name Policy Number Policy Arteaga Covered Member ID Arteaga Member ID Guarantor Name 10/02/2021 1 [facility] [id number] Elfego Bean [id number] Elfego Bean 10/04/2021 1 [facility] [id number] Elfego Shaver [id number] 1 [employer] Bean 10/08/2021 1 [facility] [id number] Elfego Shaver [id number] 1 Elfego Bean Notes Date Note Type Note Provider Name and Address Organization Details Recorded Time 10/02/2021 text/html Pt began having trouble with short-term memory loss approximately 7-10 days ago. Family states at that time he tested positive for COVID-19 using a home test. They also state he has had increased weakness over the past couple days and has had increased UOP. He has had decreased appetite as well. PT has had a slightly productive cough.Family also states earlier today he was so weak it took 15 minutes to put a t-shirt on him. Dustin Lemus NP [address] [place], [address], [place] [facility] 10/02/2021 21:08:32 10/04/2021 text/html Pt is a DHFU for dehydration and delirium. Pt continues to states that he does not feel bad but also states he just wants to feel better. states pt has had a total of 1L of H2O today, plus soup and pancakes. He denies any pain, or SOB but states he has had a cough today. states he has still had low grade fever f around 100 for the past 2 days Dustin Lemus NP [address], [place], [address], [place] [facility] 10/04/2021 16:25:50 10/08/2021 text/html Onset two weeks Location upper respiratory Duration intermittent Characteristics mild, improving per patient and family Treatment azithromycin LAKISHA ALMANZAR NP [address], [place], [address], [place] [facility] 10/08/2021 16:43:41
[2024-11-20 10:37] LABS: MANUAL DIFF FLAG NO
[2024-11-20 10:49] LABS: Basophils Percent Auto 0.4 % (0-2); Eosinophils Absolute Auto 0.1 X10*3/uL (0.0-0.4); Eosinophils Percent Auto 1.2 % (0-4); Hematocrit 39.1 % (42.0-52.0); Imm Gran Abs Auto 0.07 X10*3/uL (0.00-0.03); Lymphocytes Absolute Auto 2.3 X10*3/uL (1.2-4.9); Lymphocytes Percent Auto 34.1 % (20-40); Mean Corpuscular HGB Conc 33.2 g/dl (31.0-36.0); Mean Corpuscular Hemoglobin 30.8 pg (27.0-33.0); Mean Corpuscular Volume 92.7 fL (80.0-98.0); Mean Platelet Volume 8.8 fL (9.4-12.4); Monocytes Absolute Auto 0.5 X10*3/uL (0.1-1.2); Neutrophils Absolute Auto 3.8 x10*3/uL (2.0-8.3); Neutrophils Percent Auto 56.3 % (45-73); Platelet Count 272 X10*3/uL (160-400); Red Blood Count 4.22 X10*6/uL (4.60-5.80); Red Cell Distribution Width 13.2 % (11.0-16.0); White Blood Count 6.7 X10*3/uL (4.8-10.8)
[2024-11-20 11:13] LABS: Estimated Average Glucose 103 mg/dL; Hemoglobin A1C 105.3069 umol/L; Hemoglobin A1c % 5.2 % (<6.0); Total Hemoglobin (HGBA1C) 3174.1484 umol/L
[2024-11-20 11:16] LABS: Alanine Aminotransferase 21 U/L (0-40); Albumin Level 3.8 g/dL (3.5-5.0); Alkaline Phosphatase 123 U/L (39-117); Anion Gap 12 (12-20); Aspartate Amino Transferase 26 U/L (5-37); Bilirubin Total 0.5 mg/dL (0.0-1.0); Blood Urea Nitrogen 16 mg/dL (9-16); Calcium 9.7 mg/dL (8.4-10.2); Carbon Dioxide 27 mmol/L (22-29); Chloride 107 mmol/L (96-108); Cholesterol 155 mg/dL (<200); Estimated Glomerular Filt Rate > 60; Glucose Fasting 96 mg/dL (60-99); HDL Cholesterol 40 mg/dL (>40); LDL Cholesterol Calculated 99 mg/dL (<100); Potassium 4.6 mmol/L (3.3-5.1); Sodium 141 mmol/L (135-145); Total Protein 8.3 g/dL (6.5-8.0); Triglycerides 82 mg/dL (<150)
[2024-11-20 11:35] LABS: TSH reflex Free T4 0.86 uIU/mL (0.32-4.0)
== END 2024-11-20 07:38 | disposition home or self-care (01) ==
LOC: HO.HMGCLDS 07:37
PROVIDERS: PCP Internal Medicine; Visit Provider Internal Medicine
DX: R73.9 Hyperglycemia, unspecified (principal); F03.90 Unspecified dementia, unspecified severity, without behavioral disturbance, psychotic disturbance, mood disturbance, and anxiety; I10 Essential (primary) hypertension
CPT/HCPCS: 36415; 80053; 80061; 83036; 84443; 85025

== ENCOUNTER 2024-11-24 09:00 | Outpatient (AMB) | payer MEDICARE, SELFPAY ==
[2024-11-24 09:10] VITALS: BP 112/68; PULSE 65; RESP 16; TEMP 36.6; O2SAT 95; BMI 23.3
--- NOTE | 2024-11-24 09:10 | A.OFFPC_ITS ---
Vital Signs 11/24/24 09:10 Height 5 ft 8 in Weight 153 lb 4 oz BMI 23.3 BP 112/68 Blood Pressure Location Lt brachial Position Sitting Respiration 16 Pulse 65 Pulse Source Pulse Oximeter Temp 97.9 F Temp Source Oral Pulse Oximetry (%) 95 Oxygen Delivery Method Room Air Intake Visit Reasons: Annual PE/Insurance covers Intake Note: Pt is here today for his annual physical. Allergies penicillamine Allergy (Unknown, Verified 11/24/24 09:11) n/a Tobacco use date assessed: 11/24/24 Fall risk assessment: No Falls in past year Last assessed Fall Risk: 11/24/24 Dental Screening Dental Screen Date: 11/24/24 Did you have a dental visit in the last 12 months?: Yes Did you have a dental problem in the last 6 months where you did not have access to dental care?: No Was dental information given to patient?: Patient has dentist HPI Annual PE/Insurance covers HPI Details Pt presents for PE. [facility] Medical History COVID-19 Hip pain, right Weight loss Normal colonoscopy HTN (hypertension) Surgical History History of hip surgery Hx of appendectomy Family History Mother No problems noted. Father No problems noted. 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 1. Little interest or pleasure in doing things: not at all 2. Feeling down, depressed, or hopeless: not at all 3. Trouble falling or staying asleep, or sleeping too much: not at all 4. Feeling tired or having little energy: not at all 5. Poor appetite or overeating: more than half the days 6. Feeling bad about yourself - or that you are a failure or have let yourself or your family down: not at all 7. Trouble concentrating on things, such as reading the newspaper or watching television: not at all 8. Moving or speaking so slowly that other people could have noticed. Or the opposite - being so fidgety or restless that you have been moving around a lot more than usual: not at all 9. Thoughts that you would be better off or of hurting yourself in some way: not at all Total score: 2 Depression Screening Interpretation: Negative Depression Screening Done: Yes 15950 - PHQ-9 Billing: Yes Source: Developed by Drs. Azeem Johnson, Naomy Denny, Jf Chung and colleagues, with an educational bert from [employer]). Thrive Questionnaire Date Thrive assessed: 11/24/24 I am a: Patient What is your living situation today?: I have a steady place to live Within the past 12 months, did the food you bought not last and you didn't have the money to get more?: Never true Within the past 12 months, did you worry whether your food would run out before you got money to buy more?: Never true Do you have trouble paying for medicines?: No Do you have trouble getting transportation to medical appointments?: No Do you have trouble paying your heating and electricity bill?: No Do you have trouble taking care of your child, family member or friend?: No Do you have trouble with day-to-day activities such as bathing, preparing meals, shopping, managing finances, etc.?: No Are you currently unemployed and looking for a job?: No Are you interested in more education?: No Please select the resources that you would like help with: None Currently or been in a relationship where the following occur: No concerns reported THRIVE Score: 0 AUDIT C Alcohol Use Questionnaire (AUDIT-C) 1. How often do you have a drink containing alcohol?: Never 3. How often do you have six or more drinks on one occasion?: Never Total Score: 0 Score Reviewed/Action Taken: Yes EVA-7 AMB Questionnaire EVA-7 Date EVA - 7 assessed: 11/24/24 Feeling nervous, anxious, or on edge: 1 = Several days Not being able to stop or control worryin = Not at all Worrying too much about different things: 0 = Not at all Trouble relaxin = Not at all Being so restless that it is hard to sit still: 0 = Not at all Becoming easily annoyed or irritable: 1 = Several days Feeling afraid as if something awful might happen: 0 = Not at all Total EVA-7 score (0-4 normal; 5-9 mild; 10-14 moderate; 15-21 severe): 2 Source: Developed by Drs. Azeem Johnson, Naomy Denny, Jf Chung and colleagues, with an educational bert from [employer]). EVA-7 Assessment Billing EVA-7 Assessment Tool: EVA-7 Assessment 38664 Review of Systems Const All systems reviewed & are unremarkable except as noted in HPI and below Eyes Reports no additional complaints ENT Reports no additional complaints Card Reports no additional complaints Resp Reports no additional complaints GI Reports no additional complaints Reports no additional complaints Physical exam (Primary Care) Vital Signs: Last Vital Signs Temp 97.9 F 11/24/24 09:10 Pulse 65 11/24/24 09:10 Resp 16 11/24/24 09:10 BP 112/68 11/24/24 09:10 Pulse Ox 95 11/24/24 09:10 Oxygen Delivery Method Room Air 11/24/24 09:10 BMI result Body Mass Index 23.3 Tobacco/Smoking Status: Tobacco use Status Tobacco use date assessed 11/24/24 11/24/24 09:12 Patient Tobacco Use Status Never used Tobacco 11/24/24 09:12 e-Cigarette/Vaping Use Never Used 11/24/24 09:12 PHQ-9: PHQ-9 Score PHQ-9: Total score 2 11/24/24 09:12 Depression Screening Interpretation: Negative Thrive Assessment: Date of Thrive Assessment Date Thrive assessed 11/24/24 11/24/24 09:12 Currently or been in a relationship where the following occur: No concerns reported Const General: no acute distress HENMT Head: Yes normal to inspection Face and sinus: Yes normal facial exam Throat: Yes posterior oropharynx normal Eyes General: appearance normal, both eyes and all related structures Neck Neck: Yes no lymphadenopathy and Yes supple Resp Effort & Inspection: normal respiratory effort Auscultation: clear to auscultation bilaterally Cardio Rhythm: regular rhythm Heart sounds: S1 normal heart sound present and S2 normal heart sound present GI Inspection: Yes normal to inspection Palpation (GI): Soft to palpation Percussion: Yes normal to percussion Auscultation: normal bowel sounds Coding Level of Care Code Est Pt Prev Care >65y(54157) Diagnoses Dementia F03.90 HTN (hypertension) I10 Annual physical exam Z00.00 Additional Codes EVA-7 Assessment Billing - EVA-7 Assessment Tool: EVA-7 Assessment 28735 ([id number]) PHQ-9 - 02126 - PHQ-9 Billing: Yes ([id number]) Assessment & Plan Assessment & Plan (1) Dementia: Comment: With agitation, controlled on low dose of Haldol p.r.n. Code(s): F03.90 - Unspecified dementia, unspecified severity, without behavioral disturbance, psychotic disturbance, mood disturbance, and anxiety Category: Medical Plan: cont current tx (2) HTN (hypertension): Code(s): I10 - Essential (primary) hypertension Category: Medical Plan: cont Atenolol (3) Annual physical exam: Code(s): Z00.00 - Encounter for general adult medical examination without abnormal findings Category: Medical Plan: Well-balanced diet regular physical activity discussed with the patient and his
--- OUTSIDE RECORDS SUMMARY | 2024-11-24 09:30 | XMS_ITS | Patient Health Record ---
Author Organization [facility] Address [address] [facility] [place] [place] [address] Care Team Providers Care Armhole Sewer Name Role Phone LYLE VERONICA Primary Care Provider [phone] ALLERGIES Allergen (clinical drug ingredient) Drug/Non Drug [...] Problem Hyperlipidemia, unspecified (E78.5) Active confirmed Hyperlipidemia (28577642) Problem Acute stress reaction (F43.0) Active confirmed Acute stres s reaction (51173882) Problem Essential (primary) hypertension (I10) Active confirmed Essential hypertension (38532162) PLAN OF TREATMENT Pending Test Test Name [...] Date Coverage End Date Errolgabrielle JEN [address] [place], [place] [address] [id number] Elfego Bean Self - patient is the insured 8 MEDICAL (GENERAL) HISTORY Medical History History ICD Code hypertension depression Surgical History Surgery Date(Month/Year) appendectomy colonoscopy 2018
== END 2024-11-24 09:38 | disposition home or self-care (01) ==
PROVIDERS: PCP Internal Medicine; Visit Provider Internal Medicine
DX: F03.90 Unspecified dementia, unspecified severity, without behavioral disturbance, psychotic disturbance, mood disturbance, and anxiety (principal); I10 Essential (primary) hypertension; Z00.00 Encounter for general adult medical examination without abnormal findings

== ENCOUNTER → 2024-11-24 09:00 | Outpatient (BNVA) | payer MEDICARE, SELFPAY | PROVIDERS: PCP Internal Medicine; Visit Provider Internal Medicine | DX: Z00.00 Encounter for general adult medical examination without abnormal findings (principal); F03.90 Unspecified dementia, unspecified severity, without behavioral disturbance, psychotic disturbance, mood disturbance, and anxiety; I10 Essential (primary) hypertension | CPT/HCPCS: 96127; 99397 ==

== ENCOUNTER 2025-08-28 09:51 | Outpatient (AMB) | payer MEDICARE, SELFPAY ==
[2025-08-28 10:12] VITALS: BP 120/60; PULSE 68; TEMP 37.3; O2SAT 98; BMI 26.6
--- NOTE | 2025-08-28 10:12 | MHC.OFFWIV ---
Intake Vital Signs 08/28/25 10:12 Height 5 ft 8 in Weight 175 lb BMI 26.6 BP 120/60 Blood Pressure Location Lt brachial Position Sitting Pulse 68 Pulse Source Pulse Oximeter Temp 99.1 F Temp Source Oral Pulse Oximetry (%) 98 Oxygen Delivery Method Room Air Intake Visit Reasons: EP Vomitting, loss of appetite Intake Note: pt presents with loss of appetite for 2 days, vomited yesterday with a yellow color, Dyspnea, loss of appetite, wet himself last night and this morning, increased weakness and confusion. reports worsened demmentia Patient Tobacco Use Status: Never used Tobacco Allergies penicillamine Allergy (Unknown, Verified 08/28/25 10:16) n/a Do you need a note to return to daycare/school/sports/work: No HPI HPI Comments History of Present Illness Details This is a 80-year-old male with a past medical history of hypertension, hyperlipidemia and dementia presenting with his for evaluation of generalized malaise since Sunday and a single episode of vomiting yesterday. Patient's reports subjective fevers and states that he ?looked cold? but states he has no overt complaints. She notes that his appetite has been significantly less over the past 2 days. She denies that he has had any abdominal pain, diarrhea, cough or shortness of breath. [facility] Medical History COVID-19 Hip pain, right Weight loss Normal colonoscopy HTN (hypertension) Surgical History History of hip surgery Hx of appendectomy Family History Mother No problems noted. Father No problems noted. 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 Const General: cooperative, comfortable and no acute distress; No ill appearing Nutritional Appearance: average body habitus Orientation/consciousness: oriented to person Limitations: other limitations (dementia limits HPI and interview) HEENT Head: Yes normal to inspection Ears: hearing grossly normal bilaterally General nose exam: Normal external nose present Face and sinus: Yes normal facial exam Mouth: Normal oral and palatal mucosa present and oropharynx normal Throat: Yes posterior oropharynx normal Eyes General: appearance normal, both eyes and all related structures Neck Lymphatic: no lymphadenopathy noted Resp Effort & Inspection: normal respiratory pattern, no audible wheezes, no cough, decreased respiratory effort, no pursed lip breathing, not tachypneic and symmetric chest movement Auscultation: clear to auscultation bilaterally Cardio Rate: regular rate Rhythm: regular rhythm GI Palpation (GI): Soft to palpation, nontender and no guarding Auscultation: normal bowel sounds General: Yes Bimanual renal exam normal bilaterally and Yes bladder normal to palpation Skin General skin exam: no rashes or lesions noted Neuro General: oriented to person Psych Appearance: grossly normal Affect: Blunted affect present Attitude: cooperative Insight: Poor insight present (Psych) Judgement: Limited judgement present (Psych) Results AMB Urinalysis, Automated UA Leukoctes 0 Willie/uL Last Edit by Jacquelyn Villaseñor CMA on 08/28/25 10:42 UA Nitrite Negative Last Edit by Jacquelyn Villaseñor CMA on 08/28/25 10:42 UA Urobilinogen 0.2 mg/dL Last Edit by Jacquelyn Villaseñor CMA on 08/28/25 10:42 UA Protein 15 mg/dL Last Edit by Jacquelyn Villaseñor CMA on 08/28/25 10:42 UA pH 6.0 Last Edit by Jacquelyn Villaseñor CMA on 08/28/25 10:42 UA Blood 0 Moses/uL Last Edit by Jacquelyn Villaseñor CMA on 08/28/25 10:42 UA Specific Johnson 1.020 Last Edit by Jacquelyn Villaseñor CMA on 08/28/25 10:42 UA Ketone Negative Last Edit by Jacquelyn Villaseñor CMA on 08/28/25 10:42 UA Bilirubin 0 mg/dL Last Edit by Jacquelyn Villaseñor CMA on 08/28/25 10:42 UA Glucose 0 mg/dL Last Edit by Jacquelyn Villaseñor CMA on 08/28/25 10:42 Results Reviewed Results Reviewed: Urinalysis is reviewed. Urine culture pending. Assessment & Plan Assessment & Plan (1) Nausea & vomiting: Comment: Patient presents with his for evaluation of general malaise and a single episode of vomiting. Urinalysis is not suspicious for an acute UTI however respiratory panel and urine culture are pending at this time. Patient will be discharged home with Zofran. Code(s): R11.2 - Nausea with vomiting, unspecified Qualifiers: Vomiting type: unspecified Qualified Code(s): R11.2 - Nausea with vomiting, unspecified Plan: Zofran q.6 hours PRN nausea, patient's will be certain he stays very well hydrated, respiratory panel and urine culture are pending. Orders: Orders AMB Urinalysis Automated Today Z13.9 - Encounter for screening, unspecified Urine Culture Today R30.0 - Dysuria SARS-CoV2/FLU/RSV Today J06.9 - Acute upper respiratory infection, unspecified Medications: New ondansetron HCl 4 mg PO Q8H PRN 10 tabs 0RF nausea and vomiting Coding Level of Care Code Est Pt Level 3 (32855) Diagnoses Nausea and vomiting, unspecified vomiting type R11.2 Vomiting type: unspecified Time Spent (min) 20
== END 2025-08-28 10:55 | disposition home or self-care (01) ==
PROVIDERS: PCP Internal Medicine; Visit Provider Physician Assistant
DX: Z13.9 Encounter for screening, unspecified (principal); R11.2 Nausea with vomiting, unspecified

== ENCOUNTER 2025-08-28 09:51 | Outpatient (REF) | payer MEDICARE, SELFPAY ==
[2025-08-28 14:31] LABS: Resp Syncy Virus RNA Qual PCR NEGATIVE (Negative); SARS COV2 PCR INHOUSE NEGATIVE (Negative)
== END 2025-08-28 09:52 | disposition home or self-care (01) ==
LOC: HO.LNP 09:51
PROVIDERS: PCP Internal Medicine; Visit Provider Physician Assistant
DX: R11.2 Nausea with vomiting, unspecified (principal); R30.0 Dysuria; J06.9 Acute upper respiratory infection, unspecified
CPT/HCPCS: 81003; 87086; 87088; 87186; 87637; 99212